=== PATIENT | female | born 1980 | race Caucasian/White ===

== ENCOUNTER 2016-05-24 09:15 | Emergency (ER) | payer BC ==
[2016-05-24 09:29] VITALS: BP 125/86
--- NOTE | 2016-05-24 09:52 | UC ---
Respiratory Complaint HPI - HPI Summary HPI Summary: pt states she has had a cold for over a week now. c/o of chest congestion, cough for one week, chest tightness and worsening of symptoms for 2 days. subjective fever 4-5 days ago. Has hoarse voice at this time. [ End ] - History of Current Complaint Chief Complaint: UCGeneralIllness Stated Complaint: COUGH,CHEST CONGESTION Time Seen by Provider: 05/24/16 09:47 Hx Obtained From: Patient Hx Last Menstrual Period: 05/03/16 ?: No Onset/Duration: Gradual Onset Timing: Constant Severity Initially: Mild Character: Cough: Nonproductive Associated Signs And Symptoms: Positive: Nasal Congestion, Hoarseness - Risk Factors Pulmonary Embolism Risk Factors: Negative Cardiac Risk Factors: Negative - Allergies/Home Medications Allergies/Adverse Reactions: Allergies Allergy/AdvReac Type Severity Reaction Status Date / Time No Known Allergies Allergy Verified 05/24/16 09:29 Home Medications: Home Medications Acetaminophen [Acetaminophen Extra Stren] 500 mg PO Q6H PRN 05/24/16 [History Confirmed 05/24/16] Labetalol TAB* [Trandate TAB*] 200 mg PO BID 05/24/16 [History Confirmed ] PMH/Surg Hx/FS Hx/Imm Hx Previously Healthy: Yes Endocrine History Of: Denies: Diabetes Cardiovascular History Of: Reports: Hypertension Respiratory History Of: Denies: COPD GI/ History Of: Denies: Gastroesophageal Reflux Neurological History Of: Denies: TIA Psychological History Of: Denies: Anxiety - Surgical History Surgical History: Yes Surgery Procedure, Year, and Place: LEEP procedure - 01/04/2014 - Family History Known Family History: Positive: None - Social History Occupation: Employed Full-time Lives: With Family Alcohol Use: Rare Substance Use Type: None Smoking Status (MU): Former Smoker Review of Systems Constitutional: Fatigue Skin: Negative Eyes: Negative ENT: Nasal Discharge Respiratory: Cough Cardiovascular: Negative Gastrointestinal: Negative Genitourinary: Negative Motor: Negative Neurovascular: Negative Musculoskeletal: Negative Neurological: Negative Psychological: Negative All Other Systems Reviewed And Are Negative: Yes Physical Exam Triage Information Reviewed: Yes Appearance: Well-Appearing, No Pain Distress, Well-Nourished Vital Signs: Initial Vital Signs Temp 98.4 F 05/24/16 09:20 Pulse 76 05/24/16 09:20 Resp 16 05/24/16 09:20 BP 125/86 05/24/16 09:20 Pulse Ox 98 05/24/16 09:20 Eye Exam: Normal ENT Exam: Normal Dental Exam: Normal Neck exam: Normal Neck: Positive: 1 Respiratory Exam: Normal Cardiovascular Exam: Normal Musculoskeletal Exam: Normal Neurological Exam: Normal Psychological Exam: Normal Skin Exam: Normal UC Diagnostic Evaluation - Laboratory O2 Sat by Pulse Oximetry: 98 Respiratory Course/Dx - Differential Dx/Diagnosis Differential Diagnosis/HQI/PQRI: Bronchitis, Laryngitis, Lower Resp Infection, Sinusitis Provider Diagnoses: URI Discharge - Discharge Plan Condition: Good Disposition: HOME Patient Education Materials: Upper Respiratory Infection (ED) Referrals: CHUCK Vasquez [Primary Care Provider] - 3 Days
== END 2016-05-24 10:29 | disposition home or self-care (01) ==
LOC: UCCORT 09:15
DX: J06.9 Acute upper respiratory infection, unspecified (principal); I10 Essential (primary) hypertension; Z87.891 Personal history of nicotine dependence
CPT/HCPCS: 99211; G0463

== ENCOUNTER 2016-11-12 11:59 | Emergency (ER) | payer BC, OTHER ==
[2016-11-12 14:08] VITALS: BP 129/72
--- NOTE | 2016-11-12 14:22 | UC ---
Throat Pain/Nasal Alex HPI - HPI Summary HPI Summary: 36 year old female with sinus pressure, tooth pain, fevers at home, nasal congestion. No cough. No SOB. - History of Current Complaint Chief Complaint: UCGeneralIllness Stated Complaint: SINUS PRESSURE,EAR PAIN Time Seen by Provider: 11/12/16 14:20 Hx Obtained From: Patient Hx Last Menstrual Period: 1.5 weeks ago Onset/Duration: Sudden Onset Severity: Moderate Cough: Productive - Allergies/Home Medications Allergies/Adverse Reactions: Allergies Allergy/AdvReac Type Severity Reaction Status Date / Time No Known Allergies Allergy Verified 05/24/16 09:29 PMH/Surg Hx/FS Hx/Imm Hx Previously Healthy: Yes - Surgical History Surgical History: Yes Surgery Procedure, Year, and Place: LEEP procedure - 01/04/2014 - Family History Known Family History: Positive: None - Social History Occupation: Employed Full-time Lives: With Family Alcohol Use: Occasionally Substance Use Type: None Smoking Status (MU): Former Smoker Review of Systems ENT: Nasal Discharge, Sinus Congestion, Sinus Pain/Tenderness All Other Systems Reviewed And Are Negative: Yes Physical Exam Triage Information Reviewed: Yes Appearance: Well-Appearing, No Pain Distress, Well-Nourished Vital Signs: Initial Vital Signs Temp 98.1 F 11/12/16 14:05 Pulse 96 11/12/16 14:05 Resp 16 11/12/16 14:05 BP 129/72 11/12/16 14:05 Pulse Ox 100 11/12/16 14:05 Vital Signs Reviewed: Yes Eye Exam: Normal ENT Exam: Normal ENT: Positive: Nasal congestion, Other: - b/l maxillary sinus pressure and tenderness to palpation. Negative: Tonsillar swelling Dental Exam: Normal Neck exam: Normal Neck: Positive: 1 Respiratory Exam: Normal Cardiovascular Exam: Normal Musculoskeletal Exam: Normal Neurological Exam: Normal Psychological Exam: Normal Skin Exam: Normal Throat Pain/Nasal Course/Dx - Differential Dx/Diagnosis Differential Diagnosis/HQI/PQRI: Sinusitis, URI Provider Diagnoses: sinusitis Discharge - Discharge Plan Condition: Good Disposition: HOME Prescriptions: Amoxicillin/Clavulanate TAB* [Augmentin TAB 875*] 875 mg PO BID #20 tab Patient Education Materials: Sinusitis (ED) Referrals: CHUCK Vasquez [Primary Care Provider] - 4 Days Additional Instructions: As we discussed we will treat as a viral sinus infection with in the AM flonase and claritin and in the PM netti pot with benadryl and if after 3 days your symptoms worsen then start the Augmentin
== END 2016-11-12 14:43 | disposition home or self-care (01) ==
LOC: UCCORT 11:59
DX: J32.9 Chronic sinusitis, unspecified (principal); Z87.891 Personal history of nicotine dependence
CPT/HCPCS: 99212; G0463

== ENCOUNTER 2017-02-04 08:43 | Emergency (ER) | payer BC ==
--- NOTE | 2017-02-04 08:56 | UC ---
Throat Pain/Nasal Alex HPI - HPI Summary HPI Summary: nasal congestion x 3 days + pnd, right ear pain , no cough ,no feve, + sinus pressure - History of Current Complaint Chief Complaint: UCRespiratory Stated Complaint: CONGESTION RIGHT EAR COMPLAINT Time Seen by Provider: 02/04/17 08:52 Hx Obtained From: Patient Hx Last Menstrual Period: 1.5 weeks ago ?: No Onset/Duration: Gradual Onset, Lasting Days - 3, Still Present Severity: Moderate Cough: None Associated Signs & Symptoms: Positive: Sinus Discomfort, Nasal Discharge. Negative: Dysphagia, FB Sensation, Drooling, Wheezing, Hoarseness, Fever, Vomiting, Rash - Allergies/Home Medications Allergies/Adverse Reactions: Allergies Allergy/AdvReac Type Severity Reaction Status Date / Time No Known Allergies Allergy Verified 02/04/17 08:53 PMH/Surg Hx/FS Hx/Imm Hx Previously Healthy: Yes - Surgical History Surgical History: Yes Surgery Procedure, Year, and Place: LEEP procedure - 01/04/2014 - Family History Known Family History: Positive: None Negative: Diabetes - Social History Alcohol Use: Occasionally Substance Use Type: None Smoking Status (MU): Former Smoker Review of Systems Constitutional: Negative Skin: Negative Eyes: Negative ENT: Ear Ache - right, Nasal Discharge, Sinus Congestion Respiratory: Negative Cardiovascular: Negative Is Patient Immunocompromised?: No All Other Systems Reviewed And Are Negative: Yes Physical Exam Triage Information Reviewed: Yes Appearance: Well-Appearing, No Pain Distress, Well-Nourished Vital Signs Reviewed: Yes Eyes: Positive: Conjunctiva Clear ENT: Positive: Normal ENT inspection, Hearing grossly normal, Pharynx normal, Nasal congestion, TM bulging - right TM, TM dull - right TM Neck: Positive: Supple, Nontender, No Lymphadenopathy Respiratory: Positive: Chest non-tender, Lungs clear, Normal breath sounds Cardiovascular: Positive: RRR, No Murmur, Pulses Normal Abdominal Exam: Normal Skin Exam: Normal Throat Pain/Nasal Course/Dx - Differential Dx/Diagnosis Provider Diagnoses: uri. otalgia Discharge - Discharge Plan Condition: Stable Disposition: HOME Patient Education Materials: Upper Respiratory Infection (ED), Earache (ED) Referrals: CHUCK Vasquez [Primary Care Provider] - If Needed Additional Instructions: no ear infection seen, + pressure behind your ear drum may try Flonase 2 spray each nostril daily
[2017-02-04 08:58] VITALS: BP 117/73
== END 2017-02-04 09:01 | disposition home or self-care (01) ==
LOC: UCCORT 08:43
DX: J06.9 Acute upper respiratory infection, unspecified (principal); Z87.891 Personal history of nicotine dependence; H92.01 Otalgia, right ear
CPT/HCPCS: 99211; G0463

== ENCOUNTER 2017-07-02 08:37 | Emergency (ER) | payer BC ==
[2017-07-02 09:09] VITALS: BP 119/83
--- NOTE | 2017-07-02 10:11 | UC ---
Respiratory Complaint HPI - HPI Summary HPI Summary: 36 yo female with sinus pressure and pain x 10 days intermittent right otalgia x months no f/c - History of Current Complaint Chief Complaint: UCGeneralIllness Stated Complaint: SINUSES Time Seen by Provider: 07/02/17 09:59 Hx Obtained From: Patient Hx Last Menstrual Period: 06/28/17 Onset/Duration: Gradual Onset, Lasting Days Timing: Constant Severity Initially: Mild Severity Currently: Moderate Pain Intensity: 7 Character: Cough: Nonproductive Aggravating Factors: Nothing Associated Signs And Symptoms: Positive: Nasal Congestion, Sinus Discomfort - Allergies/Home Medications Allergies/Adverse Reactions: Allergies Allergy/AdvReac Type Severity Reaction Status Date / Time No Known Allergies Allergy Verified 02/04/17 08:53 Home Medications: Home Medications GuaiFENesin DM* [Robitussin DM*] 10 ml PO Q6H PRN 07/02/17 [History Confirmed ] Pseudoephedrine HCL ER TAB* [Sudafed 12 Hour*] 120 mg PO BID PRN 07/02/17 [ History Confirmed 07/02/17] PMH/Surg Hx/FS Hx/Imm Hx Previously Healthy: Yes - Surgical History Surgical History: Yes Surgery Procedure, Year, and Place: LEEP procedure - 01/04/2014 - Family History Known Family History: Positive: None, Hypertension Negative: Diabetes - Social History Alcohol Use: Rare Substance Use Type: None Smoking Status (MU): Former Smoker Length of Time of Smoking/Using Tobacco: <1/2 PPD x 10 Years When Did the Patient Quit Smoking/Using Tobacco: 2007 - Immunization History Most Recent Influenza Vaccination: 2017 Review of Systems Constitutional: Fatigue Skin: Negative Eyes: Negative ENT: Dental Pain, Sore Throat, Ear Ache, Nasal Discharge, Sinus Congestion, Sinus Pain/Tenderness Respiratory: Cough Cardiovascular: Negative Gastrointestinal: Negative Genitourinary: Negative Motor: Negative Neurovascular: Negative Musculoskeletal: Negative Neurological: Negative Psychological: Negative Is Patient Immunocompromised?: No All Other Systems Reviewed And Are Negative: Yes Physical Exam Triage Information Reviewed: Yes Appearance: Well-Appearing, No Pain Distress, Well-Nourished Vital Signs: Initial Vital Signs Temp 98.6 F 07/02/17 09:03 Pulse 88 07/02/17 09:03 Resp 16 07/02/17 09:03 BP 119/83 07/02/17 09:03 Pulse Ox 100 07/02/17 09:03 Vital Signs Reviewed: Yes Eyes: Positive: Conjunctiva Clear ENT: Positive: Hearing grossly normal, Pharynx normal, Nasal congestion, Nasal drainage, Sinus tenderness, Uvula midline. Negative: Tonsillar swelling, Tonsillar exudate, Trismus, Muffled voice, Dental tenderness Dental Exam: Normal Neck: Positive: Supple, Nontender, No Lymphadenopathy Respiratory: Positive: Lungs clear, Normal breath sounds, No respiratory distress, No accessory muscle use Cardiovascular: Positive: RRR, No Murmur Musculoskeletal: Positive: ROM Intact, No Edema Neurological: Positive: Alert Psychological Exam: Normal Skin Exam: Normal Diagnostic Evaluation - Laboratory O2 Sat by Pulse Oximetry: 100 - normal;not hypoxic Respiratory Course/Dx - Differential Dx/Diagnosis Provider Diagnoses: acute sinusitis Discharge - Sign-Out/Discharge Documenting (check all that apply): Discharge/Admit/Transfer - Discharge Plan Condition: Stable Disposition: HOME Prescriptions: Amoxicillin PO (*) [Amoxicillin 875 MG (*)] 875 mg PO BID #20 tab Patient Education Materials: Sinusitis (ED), Serous Otitis Media (ED) Referrals: CHUCK Vasquez [Primary Care Provider] - 2 Weeks Additional Instructions: increase your flonase to 2 sprays twice daily saline nasal spray twice daily benadryl 50 mg at bedtime - Billing Disposition and Condition Condition: STABLE Disposition: HOME
== END 2017-07-02 10:11 | disposition home or self-care (01) ==
LOC: UCCORT 08:37
DX: J01.90 Acute sinusitis, unspecified (principal); Z87.891 Personal history of nicotine dependence
CPT/HCPCS: 99212; G0463

== ENCOUNTER 2018-09-14 14:15 | Emergency (ER) | payer BC ==
[2018-09-14 15:42] VITALS: BP 131/93
--- NOTE | 2018-09-14 15:59 | UC ---
Ear Complaint HPI - HPI Summary HPI Summary: Pt c/o right ear pain X 2 years. Pt states that she was seen here and given oral prednisone with no improvement in pain. Pt states that she has not followed up with PCP or with ENT specialist. - History of Current Complaint Chief Complaint: UCEar Stated Complaint: RT EAR CONCERN Time Seen by Provider: 09/14/18 15:47 Hx Obtained From: Patient Hx Last Menstrual Period: 06/28/17 ?: No Onset/Duration: Gradual Onset, Lasting Weeks - years Severity Initially: Moderate Severity Currently: Moderate Pain Intensity: 6 Associated Signs/Symptoms: Positive: Hearing Loss - Allergies/Home Medications Allergies/Adverse Reactions: Allergies Allergy/AdvReac Type Severity Reaction Status Date / Time No Known Allergies Allergy Verified 09/14/18 15:42 PMH/Surg Hx/FS Hx/Imm Hx Previously Healthy: Yes - Surgical History Surgical History: Yes Surgery Procedure, Year, and Place: LEEP procedure - 01/04/2014 - Family History Known Family History: Positive: None, Hypertension Negative: Diabetes - Social History Occupation: Employed Full-time Lives: With Family Alcohol Use: Rare Substance Use Type: None Smoking Status (MU): Former Smoker Length of Time of Smoking/Using Tobacco: <1/2 PPD x 10 Years Have You Smoked in the Last Year: No When Did the Patient Quit Smoking/Using Tobacco: 2008 - Immunization History Most Recent Influenza Vaccination: 2017 Review of Systems All Other Systems Reviewed And Are Negative: Yes Constitutional: Positive: Negative Skin: Positive: Negative Eyes: Positive: Negative ENT: Positive: Ear Ache Respiratory: Positive: Negative Cardiovascular: Positive: Negative Gastrointestinal: Positive: Negative Genitourinary: Positive: Negative Motor: Positive: Negative Neurovascular: Positive: Negative Musculoskeletal: Positive: Negative Neurological: Positive: Negative Psychological: Positive: Negative Is Patient Immunocompromised?: No Physical Exam Triage Information Reviewed: Yes Appearance: Well-Appearing, No Pain Distress Vital Signs: Initial Vital Signs Temp 98.7 F 09/14/18 15:38 Pulse 83 09/14/18 15:38 Resp 18 09/14/18 15:38 BP 131/93 09/14/18 15:38 Pulse Ox 100 09/14/18 15:38 Vital Signs Reviewed: Yes Eye Exam: Normal ENT Exam: Normal ENT: Positive: Normal ENT inspection, Hearing grossly normal, Pharynx normal Dental Exam: Normal Neck exam: Normal Neck: Positive: Supple, Nontender, No Lymphadenopathy Respiratory Exam: Normal Cardiovascular Exam: Normal Musculoskeletal Exam: Normal Neurological Exam: Normal Psychological Exam: Normal Skin Exam: Normal Ear Complaint Course/Dx - Differential Dx/Diagnosis Differential Diagnosis/HQI/PQRI: Barotrauma, Cerumen Impaction, Foreign Body, Mastoiditis, Otitis Externa, Otitis Media, Perforated TM, TMJ Syndrome, Trigeminal Nueralgia Provider Diagnosis: Ear ache Discharge - Sign-Out/Discharge Documenting (check all that apply): Patient Departure All imaging exams completed and their final reports reviewed: No Studies - Discharge Plan Condition: Stable Disposition: HOME Patient Education Materials: Earache (ED), Safe Use of NSAIDs (ED) Referrals: Lucas Natarajan MD [Medical Doctor] - If Needed Franci Vega PA [Primary Care Provider] - If Needed Ba Odom MD [Medical Doctor] - If Needed - Billing Disposition and Condition Condition: STABLE Disposition: Home
== END 2018-09-14 16:14 | disposition home or self-care (01) ==
LOC: UCCORT 14:15
DX: H92.01 Otalgia, right ear (principal); Z87.891 Personal history of nicotine dependence
CPT/HCPCS: 99211; G0463